=== PATIENT | male | born 1960 | race Two or more races ===

== ENCOUNTER 2017-03-02 05:54 | Emergency (ER) | payer OTHER ==
[~2017-03-02] VITALS: Ht 172.7 cm; Wt 98.1 kg
--- NOTE | 2017-03-02 06:43 | PHYS DOC ---
General Chief Complaint: DIZZY/LIGHT HEADED Stated Complaint: DIZZY Time Seen by MD: 06:11 Problems: History of Present Illness Initial Comments Patient is a 57-year-old male who comes to the ED complaining of dizziness. Patient states that this morning starting at 3 AM he had 3 separate episodes of very short-term dizziness described as the room spinning around him. He states that each of these episodes was associated with him moving his head rapidly on the pillow trying to readjust comfortable in bed. He says that on one of those spinning episodes he did feel some very short-term nausea and was scared to eat or drink anything this morning. He denies any chest pain or trouble breathing no diaphoresis arm or neck symptoms. He did experience one episode of dizziness during my exam which was associated with head movement and no telemetry changes were noted. Patient states that he's had some sinus issues for the past few weeks with some facial pressure and ear fullness, he's been taking ykpu-sjt-gvqxqam Sudafed and DayQuil. Patient has hyperlipidemia and has been told he is had borderline hypertension in the past but is not on any medications, denies diabetes or any lifetime smoking history. He also denies family history of coronary artery disease. He's had a negative stress test years ago no recent cardiovascular workup. Timing/Duration: 4-6 hours Severity: mild Modifying Factors: worse with movement, improves with rest Associated Symptoms: nausea/vomiting, other Allergies: Coded Allergies: Penicillins (Verified Allergy, Intermediate, 03/02/17) cyclobenzaprine (Verified Allergy, Intermediate, 03/02/17) Past Medical History Medical History: high cholesterol, hypertension Surgical History: noncontributory Social History Smoker: non-smoker Alcohol: rarely Drugs: none Review of Systems Constitutional: denies chills, denies diaphoresis, denies fever, denies malaise EENTM: see HPI Respiratory: denies cough, denies shortness of breath, denies wheezing Cardiovascular: denies chest pain, denies palpitations, denies syncope Gastrointestinal: denies abdominal pain, denies diarrhea, nausea, denies vomiting Musculoskeletal: denies back pain, denies joint pain, denies muscle pain, denies neck pain Psychiatric/Neurological: see HPI Physical Exam General Appearance: WD/WN, no apparent distress Eyes: bilateral eye normal inspection, bilateral eye PERRL, bilateral eye EOMI Ear, Nose, Throat: other (turbinates inflamed, serous fluid noted bilaterally as well as some clear nasal discharge no pharyngeal erythema or postnasal drip noted) Neck: non-tender, supple, other (no bruits auscultated) Respiratory: normal breath sounds, no respiratory distress Cardiovascular: normal peripheral pulses, regular rate, rhythm Gastrointestinal: non tender, soft Back: no CVA tenderness, no vertebral tenderness Extremities: non-tender, normal inspection, no pedal edema Neurologic/Psychiatric: cooperative manager II-XII nml as tested, no motor/sensory deficits, alert, normal mood/affect, oriented x 3, other (reproduction of chief complaint with rapid head movements during exam) Skin: normal color, warm/dry Orders, Labs, Meds EKG: Normal sinus rhythm 72 bpm, nonspecific RSR pattern in V3 and baseline wander artifact, nonspecific T contour abnormality no ST segment elevation. Interpreted by me. I discussed the likelihood of benign positional vertigo. Due to the patient's history of positive PPD test will obtain chest x-ray as well as some screening labs to evaluate for other possible cause of his dizziness. Patient is resting comfortably. His vital signs are stable. Labs reassuring, chest x-ray does not appear to reveal any active cardiopulmonary process these results were discussed with the patient. 0744: Time in department 1 hour 50 minutes. The patient's IV fluids and medications are just now being administered, and the like to wait an hour she received fluids and to evaluate efficacy of the medications. He will have prolonged ED course due to medication delay. PATIENT: REJI STANFORD ACCOUNT: [id number] : 1960 LOCATION: ER AGE: 57 SEX: M EXAM STATUS: REG ER ORD. PHYSICIAN: NOEMY RICH DO REASON: dizziness PROCEDURE: CHEST PA & LATERAL Chest, 2 views, 03/02/2017: History: Dizziness The heart size and pulmonary vascularity are normal. The aorta is mildly tortuous. No pulmonary infiltrates are seen. There is no evidence of pleural fluid. Moderate spurring is present in the spine. Postsurgical changes are noted at the right shoulder. IMPRESSION: No acute cardiopulmonary abnormality is detected. DICTATED AND SIGNED BY: ELTON ELIAS MD DATE: 03/02/17 0802 CC: HILDA OWENS; NOEMY RICH DO ~ 0858: I rechecked the patient he has new new or progressive symptoms and is feeling somewhat better. He can still reproduce the dizziness some with his head movements but is overall feeling better with hydration and IM Solu-Medrol. I discussed prescription and sldz-dqb-aemssos medications, signs and symptoms to monitor as well as indications for urgent return to the department. Patient' s questions were answered and he expressed agreement and understanding with the treatment plan. Departure Time of Disposition: 08:51 Disposition: 01 HOME, SELF-CARE Diagnosis: BPV, serous otitis media, URI Condition: GOOD Patient Instructions: Benign Positional Vertigo, Serous Otitis Media Additional Instructions: Please review the patient education materials given by ED staff. Take care with sudden movements especially with your head to prevent dizziness or falls. Qqnh-jzg-untnxhc cetirizine in the morning, Benadryl at bedtime until symptoms resolve. Prescription: Prednisone, Zithromax, meclizine Follow-up with Rayna Owens in 7-10 days for recheck. Return to ED with new or changing symptoms. NOEMY RICH DO Mar 02, 2017 06:43
[2017-03-02] MEDS ORDERED: IV NORMAL SALINE 1,000ML 1,000 ML IV SCH (07:01)
[2017-03-02 07:27] LABS: BASO % 1 % (0-3); CALCIUM 8.8 mg/dL (8.5-10.1); CREATININE 0.9 mg/dL (0.7-1.3); EOS # 0.1 x10^3/uL (0.0-0.7); EOS % 3 % (0-3); GFR 86.4; HEMATOCRIT 47.7 % (39.0-53.0); HEMOGLOBIN 16.5 g/dL (13.0-17.5); LYMPH % 43 % (24-48); MEAN CORPUSCULAR HEMOGLOBIN 33 pg (25-35); MEAN CORPUSCULAR HGB CONC 35 g/dL (31-37); MEAN CORPUSCULAR VOLUME 96 fL (79-100); MONO # 0.4 x10^3/uL (0.0-1.1); MONO % 8 % (0-9); NEUT # 2.1 x10^3uL (1.8-7.7); NEUT % 45 % (31-73); PLATELET COUNT 173 x10^3/uL (140-400); RED BLOOD COUNT 4.97 x10^6/uL (4.30-5.70); RED CELL DISTRIBUTION WIDTH 12.5 % (11.5-14.5); WHITE BLOOD COUNT 4.6 x10^3/uL (4.0-11.0)
[2017-03-02] MEDS ORDERED: ONDANSETRON PF 4 MG/2 ML VIAL. IV ONE (07:30)
[2017-03-02] MEDS ORDERED: methylPREDNISolone SOD SUCC PF 125 MG/2 ML VIAL. IV ONE (07:30)
--- NOTE | 2017-03-02 08:06 | RAD ---
Chest, 2 views, 03/02/2017: History: Dizziness The heart size and pulmonary vascularity are normal. The aorta is mildly tortuous. No pulmonary infiltrates are seen. There is no evidence of pleural fluid. Moderate spurring is present in the spine. Postsurgical changes are noted at the right shoulder. IMPRESSION: No acute cardiopulmonary abnormality is detected.
[2017-03-02] MEDS ORDERED: AZIT250T PO (08:51)
[2017-03-02] MEDS ORDERED: MECL25TA3 PO (08:51)
[2017-03-02] MEDS ORDERED: PRED20TA PO (08:51)
[2017-03-02 09:00] VITALS: BP 140/84
--- NOTE | 2017-03-02 17:36 | EKG ---
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
== END 2017-03-02 09:00 | disposition home or self-care (01) ==
LOC: ER 05:54
DX: H65.93 Unspecified nonsuppurative otitis media, bilateral (principal); H81.13 Benign paroxysmal vertigo, bilateral; J06.9 Acute upper respiratory infection, unspecified; I10 Essential (primary) hypertension; E78.00 Pure hypercholesterolemia, unspecified; Z88.0 Allergy status to penicillin; Z88.8 Allergy status to other drugs, medicaments and biological substances
CPT/HCPCS: 36415; 71046; 80048; 84484; 85025; 93005; 96361; 96374; 96375; 99285; J2405; J2930; J7030

== ENCOUNTER 2018-02-27 21:37 | Emergency (ER) | payer BC, OTHER ==
[~2018-02-27] VITALS: Ht 172.7 cm; Wt 93.0 kg
[~2018-02-27 21:37] MED LIST: AZIT250T PO; MECL25TA3 PO; PRED20TA PO
[2018-02-27] MEDS ORDERED: IV NORMAL SALINE 1,000ML 1,000 ML IV ONE ×2 (22:00→22:15)
--- NOTE | 2018-02-27 22:17 | PHYS DOC ---
Past History Past Medical History: High Cholesterol, Hypertension Past Surgical History: No Surgical History Smoking: Non-smoker Alcohol Use: Occasionally Drug Use: None Adult General Chief Complaint Chief Complaint: ABDOMINAL PAIN HPI HPI Patient is a 58 M that presents with a one week history of right lower quadrant abdominal pain. He said that the first time he felt the pain was a month ago when he turned to look out an airplane window and it went away until a week ago. He states that the pain is localized in the RLQ and is about a 4/10. He has noticed that he has had a little bit of constipation this past month but denies blood in the stool, nausea, or vomiting. Reports some radiation of pain toward back. Seen by his PCP who wanted to "watch things". Denies fever/ chills. Denies trauma. Denies hematuria or rash. Review of Systems Review of Systems Constitutional: Denies fever or chills [] Eyes: Denies change in visual acuity, redness, or eye pain [] HENT: Denies nasal congestion or sore throat [] Respiratory: Denies cough or shortness of breath [] Cardiovascular: Denies chest pain or palpitations [] GI: Denies nausea, vomiting, bloody stools or diarrhea, admits to constipation and abdominal pain [] : Denies dysuria or hematuria [] Musculoskeletal: Reports back pain; denies joint pain [] Integument: Denies rash or skin lesions [] Neurologic: Denies headache, focal weakness or sensory changes [] Complete systems were reviewed and found to be within normal limits, except as documented in this note. Current Medications Current Medications Current Medications Medications (Trade) Dose Ordered Sig/[facility] Start Time Stop Time Status Last Admin Dose Admin Sodium Chloride 1,000 ml @ 1,000 mls/hr 1X ONCE 02/27/18 22:15 02/27/18 23:14 Allergies Allergies Allergies Coded Allergies Type Severity Reaction Last Updated Verified Penicillins Allergy Intermediate 03/02/17 Yes cyclobenzaprine Allergy Intermediate 03/02/17 Yes Physical Exam Physical Exam Constitutional: Well developed, well nourished, no acute distress, non-toxic appearance. [] HENT: Normocephalic, atraumatic, nose normal. [] Eyes: Conjunctiva normal, no discharge. [] Neck: Normal range of motion, no tenderness, supple Cardiovascular: Heart rate regular rhythm, no murmur [] Lungs & Thorax: Bilateral breath sounds clear to auscultation [] Abdomen: Soft, nondistended, atraumatic, bowel sounds normal, mild tenderness to deep palpation in the RLQ [] Skin: Warm, dry, no erythema, no rash. [] Back: No tenderness, no CVA tenderness. [] Extremities: No tenderness, ROM intact, no edema. [] Neurologic: Alert and oriented X 3, no focal deficits noted. [] Psychologic: Affect normal, judgement normal, mood normal. [] Current Patient Data Vital Signs Vital Signs Date Time Temp Pulse Resp B/P (MAP) Pulse Ox O2 Delivery O2 Flow Rate FiO2 02/27/18 21:40 98.2 96 20 95 Room Air EKG EKG [] Radiology/Procedures Radiology/Procedures CT ABDOMEN PELVIS WO CONTRAST Indication: right lower quadrant abdominal pain radiating to right flank pain. hx of kidney stones in past with stent placement. Exposure: One or more of the following individualized dose reduction techniques were utilized for this examination: 1. Automated exposure control 2. Adjustment of the mA and/or kV according to patient size 3. Use of iterative reconstruction technique. Comparison: None are available. Contrast: No intravenous contrast given. No oral contrast per request. Evaluation of solid viscera, bowel and vasculature is compromised by the noncontrast technique. Lower thorax: Mild atelectasis or fibrosis in the lung bases. Liver: Unremarkable Spleen: Unremarkable Pancreas: Unremarkable Adrenals: No evidence of mass. Kidneys: No obvious mass. Urinary tracts: No urolithiasis or hydronephrosis. Gallbladder: No calcified stone Aorta: Mildly calcified. No evidence of aneurysm. Lymph nodes: No significant enlargement GI tract: Small hiatal hernia. No evidence of bowel obstruction. No evidence of acute colitis. Appendix is normal. Reproductive organs:No evidence of mass. Urinary bladder: Unremarkable. Peritoneum: No evidence of pneumoperitoneum. No free fluid. Abdominal wall: Unremarkable Spine: Mild anterior wedge deformity of L1, probably chronic as there are no specific findings such as acute cortical break. Degenerative spondylosis. Facet joint hypertrophy. Spinal stenosis. Bones: No destructive process identified. External Soft Tissue: No acute findings. IMPRESSION: 1. No evidence of urinary tract calculus or obstruction. 2. No acute abnormality. 3. Chronic appearing mild compression fracture deformity of L1. Electronically signed by: Reji Emerson MD (02/27/2018 10:42 PM) [facility] Course & Med Decision Making Course & Med Decision Making Patient is a 58 YO M that presented with one week of RLQ abdominal pain. History and physical were concerning for nephrolithiasis vs appendicitis. CT scan was ordered and was negative for acute abdominal pathology. Labs were ordered and posted to chart. Labs showed mild elevation of liver enzymes which could be due to medication side effects or mild viral illness. Pain management and minor constipation addressed with Levsin and Colace. Discussed following up with GI specialist for abdominal pain. Patient stable for discharge with outpatient follow-up with PCP/GI. Discussed findings and plan with patient and family, who acknowledge understanding and agreement. Dragon Disclaimer Dragon Disclaimer This electronic medical record was generated, in whole or in part, using a voice recognition dictation system. Departure Departure: Impression: Primary Impression: Abdominal pain Additional Impression: Elevated LFTs Disposition: HOME, SELF-CARE Condition: STABLE Referrals: HILDA OWENS (PCP) Patient Instructions: Abdominal Pain (Nonspecific) Additional Instructions: Your liver enzymes were slightly elevated today. Please follow with your PCP for a recheck of these values and further evaluation. ALT 186 AST 89 Scripts Sennosides/Docusate Sodium (Colace 2-in-1 Tablet) 1 Each Tablet 1 EACH PO BID PRN for CONSTIPATION, #30 TAB Prov: REJI TOVAR DO 02/27/18 Hyoscyamine Sulfate (LEVSIN-SL) 0.125 Mg Tab.subl 1-2 TAB SL PRN Q4HRS for abdominal pain, #20 TAB 0 Refills Prov: REJI TOVAR DO 02/27/18 Problem Qualifiers Primary Impression: Abdominal pain Abdominal location: unspecified location Qualified Codes: R10.9 - Unspecified abdominal pain REJI TOVAR DO Feb 27, 2018 22:17
[2018-02-27 22:36] LABS: BASO # 0.1 x10^3/uL (0.0-0.2); BASO % 1 % (0-3); EOS # 0.3 x10^3/uL (0.0-0.7); EOS % 6 % (0-3); HEMATOCRIT 45.8 % (39.0-53.0); HEMOGLOBIN 15.7 g/dL (13.0-17.5); LYMPH # 2.5 x10^3/uL (1.0-4.8); LYMPH % 44 % (24-48); MEAN CORPUSCULAR HEMOGLOBIN 33 pg (25-35); MEAN CORPUSCULAR HGB CONC 34 g/dL (31-37); MEAN CORPUSCULAR VOLUME 96 fL (79-100); MONO # 0.6 x10^3/uL (0.0-1.1); MONO % 10 % (0-9); NEUT # 2.2 x10^3uL (1.8-7.7); NEUT % 39 % (31-73); PLATELET COUNT 166 x10^3/uL (140-400); RED CELL DISTRIBUTION WIDTH 12.6 % (11.5-14.5); WHITE BLOOD COUNT 5.7 x10^3/uL (4.0-11.0)
[2018-02-27 22:46] LABS: ALBUMIN 3.3 g/dL (3.4-5.0); ALBUMIN/GLOBULIN RATIO 0.8 (1.0-1.7); CALCIUM 9.1 mg/dL (8.5-10.1); CREATININE 0.8 mg/dL (0.7-1.3); GFR 98.6; MAGNESIUM 1.8 mg/dL (1.8-2.4); POTASSIUM 3.8 mmol/L (3.5-5.1); TOTAL BILIRUBIN 0.4 mg/dL (0.2-1.0); TOTAL PROTEIN 7.4 g/dL (6.4-8.2)
--- NOTE | 2018-02-27 22:46 | RAD ---
CT ABDOMEN PELVIS WO CONTRAST Indication: right lower quadrant abdominal pain radiating to right flank pain. hx of kidney stones in past with stent placement. Exposure: One or more of the following individualized dose reduction techniques were utilized for this examination: 1. Automated exposure control 2. Adjustment of the mA and/or kV according to patient size 3. Use of iterative reconstruction technique. Comparison: None are available. Contrast: No intravenous contrast given. No oral contrast per request. Evaluation of solid viscera, bowel and vasculature is compromised by the noncontrast technique. Lower thorax: Mild atelectasis or fibrosis in the lung bases. Liver: Unremarkable Spleen: Unremarkable Pancreas: Unremarkable Adrenals: No evidence of mass. Kidneys: No obvious mass. Urinary tracts: No urolithiasis or hydronephrosis. Gallbladder: No calcified stone Aorta: Mildly calcified. No evidence of aneurysm. Lymph nodes: No significant enlargement GI tract: Small hiatal hernia. No evidence of bowel obstruction. No evidence of acute colitis. Appendix is normal. Reproductive organs:No evidence of mass. Urinary bladder: Unremarkable. Peritoneum: No evidence of pneumoperitoneum. No free fluid. Abdominal wall: Unremarkable Spine: Mild anterior wedge deformity of L1, probably chronic as there are no specific findings such as acute cortical break. Degenerative spondylosis. Facet joint hypertrophy. Spinal stenosis. Bones: No destructive process identified. External Soft Tissue: No acute findings. IMPRESSION: 1. No evidence of urinary tract calculus or obstruction. 2. No acute abnormality. 3. Chronic appearing mild compression fracture deformity of L1. Electronically signed by: Nazario Emerson MD (02/27/2018 10:42 PM) [facility]
[2018-02-27 23:12] LABS: BILIRUBIN,URINE NEG (NEG); CLARITY,URINE CLEAR; COLOR,URINE YELLOW; GLUCOSE,URINE NEG (NEG); NITRITE,URINE NEG (NEG); UROBILINOGEN,URINE 1 mg/dL (0.2 mg/dL)
[2018-02-27 23:13] LABS: BACTERIA,URINE 0 /HPF (0-FEW); RBC,URINE 0 /HPF (0-2); SQUAMOUS EPITHELIAL CELL,UR FEW /LPF
[2018-02-27] MEDS ORDERED: HYOS0.1265 SL (23:20)
[2018-02-27] MEDS ORDERED: SENN-121 PO (23:20)
[2018-02-27 23:28] VITALS: BP 145/97
== END 2018-02-27 23:30 | disposition home or self-care (01) ==
LOC: ER 21:37
DX: R10.31 Right lower quadrant pain (principal); R79.89 Other specified abnormal findings of blood chemistry; E78.00 Pure hypercholesterolemia, unspecified; I10 Essential (primary) hypertension; Z87.442 Personal history of urinary calculi; Z88.0 Allergy status to penicillin; Z88.8 Allergy status to other drugs, medicaments and biological substances
CPT/HCPCS: 36415; 74176; 80053; 81001; 83690; 83735; 85025; 99284-25; J7030

== ENCOUNTER → 2018-03-07 | Outpatient (CLI) | payer BC ==
[2018-02-27 23:28] VITALS: BP 145/97
[~2018-03-07] MED LIST changes: +DEXAMETHASONE SOD PHOS 4 MG/ML VIAL ONE; +HYOS0.1265 SL; +IOHEXOL 300 MG/ML 50 ML VIAL. ONE; +LIDOCAINE 1% PF 30 ML VIAL. ONE; +SENN-121 PO
== END | disposition home or self-care (01) ==
LOC: SURG 08:47
PROVIDERS: ATTEND Anesthesiology Pain Medicine
DX: M54.12 Radiculopathy, cervical region (principal); I10 Essential (primary) hypertension; M19.90 Unspecified osteoarthritis, unspecified site; Z98.890 Other specified postprocedural states; Z79.899 Other long term (current) drug therapy; Z88.0 Allergy status to penicillin; Z88.8 Allergy status to other drugs, medicaments and biological substances; Z87.01 Personal history of pneumonia (recurrent)
CPT/HCPCS: 62321; J1100; J2001; Q9967

== ENCOUNTER → 2018-08-02 | Outpatient (CLI) | payer BC ==
[~2018-08-02] MED LIST changes: -DEXAMETHASONE SOD PHOS 4 MG/ML VIAL ONE; -IOHEXOL 300 MG/ML 50 ML VIAL. ONE; -LIDOCAINE 1% PF 30 ML VIAL. ONE
--- NOTE | 2018-08-02 16:06 | RAD ---
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 The heart size and pulmonary vascularity are normal. Unchanged opacities projected over the anterior ends of the first ribs bilaterally are compatible with costochondral ossifications. No pulmonary infiltrate is seen. There is no evidence of pleural fluid. Mild spurring is present in the spine. IMPRESSION: No acute cardiopulmonary abnormality is detected. Electronically signed by: Siva Medina MD (08/02/2018 4:03 PM) [facility]
== END | disposition home or self-care (01) ==
LOC: DXRAD 13:57
PROVIDERS: ATTEND Physician Assistant
DX: M46.04 Spinal enthesopathy, thoracic region (principal)
CPT/HCPCS: 71046

== ENCOUNTER → 2019-07-02 | Outpatient (CLI) | payer BC ==
[~2019-07-02] MED LIST changes: +MECL-75 PO; -MECL25TA3 PO
--- NOTE | 2019-07-02 10:30 | RAD ---
AP and Lateral Views of the Chest 07/02/2019 12:00 AM Indication: Shortness of breath Comparison: Chest radiograph August 02, 2018 Findings: There is no focal consolidation or infiltrate identified. The cardiomediastinal silhouette is within normal limits. There is no evidence of pneumothorax or pleural effusion. No acute osseous abnormalities are identified. Impression: No evidence of acute cardiopulmonary process. Electronically signed by: Tee Caro MD (07/02/2019 10:27 AM) [id number]
== END ==
LOC: PMG 09:44
PROVIDERS: ATTEND Physician Assistant
DX: R07.81 Pleurodynia (principal); R05 Cough
CPT/HCPCS: 71046

== ENCOUNTER 2020-09-15 04:31 | Emergency (ER) | payer BC, OTHER ==
[~2020-09-15] VITALS: Ht 172.7 cm; Wt 91.0 kg
[2020-09-15 04:50] VITALS: BP 135/85
[2020-09-15] MEDS ORDERED: FLUT9.9S NS (05:08)
[2020-09-15] MEDS ORDERED: DIPH25TA64 PO (05:08)
--- NOTE | 2020-09-15 05:08 | PHYS DOC ---
Past History Past Medical History: High Cholesterol, Hypertension Additional Past Medical Histor: psoriasis Past Surgical History: No Surgical History Smoking: Non-smoker Alcohol Use: Occasionally Drug Use: None General Adult EDM: Chief Complaint: Nasal congestion HPI: HPI: 60-year-old male has a history of hyper tension and hypercholesterolemia who presents to the emergency department complaining of a 2 to 3-day history of nasal congestion, also a mild sore throat, sneezing, denies any chest pain or shortness of breath, no fever, chills, no neck stiffness or photophobia. No loss of taste or smell. He denies any recent travel or antibiotic use. He said that he had already tried some oxymetazoline nasal spray but he says that when it wears off it is much worse, Review of Systems: Review of Systems: General: no fevers , no chills, no general weakness Eyes: no blurred vision, no diplopia Skin: no rashes Neck: no swelling, no neck stiffness, no neck pain Heme: no bleeding, no lymph node enlargement Ear/Nose/Throat: No sore throat, + runny nose, no hearing loss, no difficulty swallowing Cardiovascular: no Chest pain, no palpitations Respiratory: No dyspnea, no cough, no hemoptysis Gastrointestinal: No abdominal pain, no nausea, no vomiting, no diarrhea, no blo od in stool Genitourinary: no dysuria, no hematuria Musculoskeletal: no back pain, no leg pain, no arm pain, no arthralgia Neurologic: no headaches, no dizziness, no focal numbness/tingling, no focal weakness Psych: no depression, no anxiety, no SI/HI *All review of systems are negative other than what is noted above Allergies: Allergies: Allergies Coded Allergies Type Severity Reaction Last Updated Verified Penicillins Allergy Intermediate 09/15/20 Yes cyclobenzaprine Allergy Intermediate 09/15/20 Yes Physical Exam: PE: Gen-well appearing, no acute distress Head: Normocephalic/Atraumatic ENT: atraumatic, PERRLA, EOMI, oropharynx clear, there is clear rhinorrhea, tympanic membranes are clear and equal bilaterally, there is maxillary sinus tenderness to percussion Neck: supple, full ROM/strength, no JVD, no nuchal rigidity Lungs: no distress, speaks in full sentences, Clear to auscultation bilaterally CV: reg rate, rhythm, no murmus/rubs/gallops, peripheral pulses equal in all extremities Abdomen: soft/nontender, no guarding/rebound tenderness, no rigidity, non distended, normoactive bowel sounds Musculoskeletal: full ROM/strength in all extremities, atraumatic, no swelling Back: full range of motion/strength Skin: intact, no rashes Lymph: no gross BRUNA Neuro: alert and oriented x 4, CN 2-12 grossly intact, Motor strength is 5/5 in all extremities, no focal sensory deficits, no focal ataxia, ambulatory with steady gait Psych: normal mood/affect Current Patient Data: Vital Signs: Vital Signs Date Time Temp Pulse Resp B/P (MAP) Pulse Ox O2 Delivery O2 Flow Rate FiO2 09/15/20 04:50 98.5 78 18 135/85 96 Room Air EKG: EKG: [] Radiology/Procedures: Radiology/Procedures: [] Heart Score: C/O Chest Pain: No Risk Factors: Risk Factors: DM, Current or recent (<one month) smoker, HTN, HLP, family history of CAD, obesity. Risk Scores: Score 0 - 3: 2.5% MACE over next 6 weeks - Discharge Home Score 4 - 6: 20.3% MACE over next 6 weeks - Admit for Clinical Observation Score 7 - 10: 72.7% MACE over next 6 weeks - Early Invasive Strategies Course & Med Decision Making: Course & Med Decision Making Pertinent Labs and Imaging studies reviewed. (See chart for details) [] 60-year-old male presents to the emergency department with a chief complaint of rhinorrhea, his exam is otherwise benign, the likely cause of his symptomatology and exam findings is allergic rhinitis, I did ask the patient about drug use he denies, he is otherwise afebrile, nontoxic-appearing, unlikely any acute cardiopulmonary etiology, unlikely any intracranial infection, no signs of abscess, he is protecting his airway, no clear indication for ED work- up or imaging, I did offer him some Sudafed which he says he already had been taking so give him a dose of dexamethasone and will have him follow-up with his primary care doctor/provider closely in the next 1 to 2 days Patient was seen in the ED for rhinorrhea, there is no apparent evidence of any emergency medical pathology at this time, patient was advised follow-up with their primary care provider /physician in the next 24-48 hours and to return to the ED before then if any new or worsening / concerning symptoms had developed. All questions and concerns were addressed at time of disposition Lopez Disclaimer: Dragguevara Disclaimer: This electronic medical record was generated, in whole or in part, using a voice recognition dictation system. Departure Departure: Impression: Primary Impression: Nasal congestion Disposition: HOME / SELF CARE / HOMELESS Condition: IMPROVED Referrals: HILDA OWENS (PCP) Within the next 48-hour Patient Instructions: Allergic Rhinitis, Nose Drops, Saline, [id number] Additional Instructions: I would recommend that you stop using the nasal spray, over time this can worsen the problem, I recommend taking ttqg-out-prthiul Benadryl or Sudafed as needed, follow the label instructions and do not operate a motor vehicle while taking Benadryl. I recommend that you also follow-up with your primary care provider/doctor in the next 1 to 2 days and return to the emergency room before then if any new or worsening/concerning symptoms develop Scripts Diphenhydramine Hcl (BENADRYL ALLERGY) 25 Mg Tablet 2 TAB PO TID for congestion for 7 Days, #30 TAB 0 Refills Prov: MARIAH OLIVEIRA MD 09/15/20 Fluticasone Propionate (Flonase Allergy Relief) 9.9 Ml [place].susp 2 SPRAYS NS DAILY for nasal congestion for 7 Days, #1 BOTTLE Prov: MARIAH OLIVEIRA MD 09/15/20 MARIAH OLIVEIRA MD Sep 15, 2020 05:08
[2020-09-15] MEDS ORDERED: DEXAMETHASONE SOD PHOS 10 MG/ML VIAL. IM ONE (05:30)
== END 2020-09-15 05:24 | disposition home or self-care (01) ==
LOC: ER 04:31
DX: R09.81 Nasal congestion (principal); J02.9 Acute pharyngitis, unspecified; R06.7 Sneezing; E78.00 Pure hypercholesterolemia, unspecified; I10 Essential (primary) hypertension; Z88.0 Allergy status to penicillin; Z88.8 Allergy status to other drugs, medicaments and biological substances
CPT/HCPCS: 96372; 99283; J1100